=== PATIENT | male | born 1990 | race Asian ===

== ENCOUNTER 2019-07-27 12:51 | Emergency (ER) | payer SELFPAY ==
--- NOTE | 2019-07-27 13:28 | ED ---
Throat Pain/Nasal Congestion - HPI Summary HPI Summary: Patient is a 29 y/o M presenting to [facility] with complaints of right sided epistaxis since two days ago. Patient was evaluated by [facility] yesterday , 07/26/19. He states that the bleeding had stopped by the time he was evaluated. Patient was given nasal spray and discharged. However, since last night, Sx resumed. [facility] advised patient to come to [facility] for further evaluation. Patient had some blood drip down his throat with initial episode, but not with current episode. He denies injury to nose. No Hx of bleeding disorders reported, but the patient does endorse Hx of HTN. He is not on blood thinners. No allergies to medications noted. He has not used his nasal spray yet. - History of Current Complaint Chief Complaint: EDEpistaxis Time Seen by Provider: 07/27/19 13:18 Hx Obtained From: Patient Onset/Duration: Lasting Days, Still Present Severity: Mild Associated Signs And Symptoms: Positive: Nasal Discharge - blood Cough: None - Allergies/Home Medications Allergies/Adverse Reactions: Allergies Allergy/AdvReac Type Severity Reaction Status Date / Time No Known Allergies Allergy Verified 07/27/19 14:13 PMH/Surg Hx/FS Hx/Imm Hx Cardiovascular History: Reports: Hx Hypertension Sensory History: Denies: Hx Legally Blind Opthamlomology History: Denies: Hx Legally Blind Infectious Disease History: Unable to Obtain/Confirm Infectious Disease History: Denies: Traveled Outside the [place] in Last 30 Days - Family History Known Family History: Positive: Hypertension Review of Systems Negative: Fever - on vitals, temp is 98.2 F ENT: Other - NEGATIVE - TRAUMA TO NOSE; POSITIVE - BLOOD DRIPPING DOWN THROAT Positive: Epistaxis All Other Systems Reviewed And Are Negative: Yes Physical Exam - Summary Physical Exam Summary: Constitutional: Well-developed, Well-nourished, Alert. (-) Distressed Skin: Warm, Dry HENT: Normocephalic; Atraumatic; Dry blood noted in right nare, no active bleed , cannot visualize bleeding source Eyes: Conjunctiva normal Neck: Musculoskeletal ROM normal neck. (-) JVD, (-) Stridor, (-) Tracheal deviation Cardio: Rhythm regular, rate normal, Heart sounds normal; Intact distal pulses; The pedal pulses are 2+ and symmetric. Radial pulses are 2+ and symmetric. (-) Murmur Pulmonary/Chest wall: Effort normal. (-) Respiratory distress, (-) Wheezes, (-) Rales Abd: Soft, (-) tenderness, (-) Distension, (-) Guarding, (-) Rebound Musculoskeletal: (-) Edema Lymph: (-) Cervical adenopathy Neuro: Alert, Oriented x3 Psych: Mood and affect Normal Triage Information Reviewed: Yes Vital Signs On Initial Exam: Initial Vitals Temp Pulse Resp BP Pulse Ox 98.2 F 112 20 147/113 98 07/27/19 12:53 07/27/19 12:53 07/27/19 12:53 07/27/19 12:53 07/27/19 12:53 Vital Signs Reviewed: Yes Procedures - Sedation Patient Received Moderate/Deep Sedation with Procedure: No Diagnostics - Vital Signs Vital Signs Temp Pulse Resp BP Pulse Ox 07/27/19 12:53 98.2 F 112 20 147/113 98 - Laboratory Lab Statement: Any lab studies that have been ordered have been reviewed, and results considered in the medical decision making process. Re-Evaluation - Re-Evaluation Second Eval Re-Evaluation Time: 14:32 Comment: Cocaine soaked gauze was removed, no brisk bleeding, no clear bleed source, surgicel inserted, will reasses. First Eval Re-Evaluation Time: 13:59 Comment: Liquid cocaine soaked gauze administered to right nare. Will reassess. Third Eval Re-Evaluation Time: 15:28 Comment: Surgicel was removed. There is no fresh blood noted and no active bleeding. Patient is comfortable with discharge. Fourth Eval Re-Evaluation Time: 16:00 - new surgicel packed in right nare per request of patient. no active bleed, however pt rather anxious and requesting packing placed. EENT Course/Dx - Course Course Of Treatment: Patient is a 29 y/o M presenting to [facility] with complaints of right sided epistaxis since two days ago. No Hx of bleeding disorder, patient is not on blood thinners. He does endorse Hx of HTN. Dry blood noted in right nare, no active bleed, cannot visualize bleeding source. Liquid-cocaine soaked gauze was applied to right nare. Upon removal of gauze, no bleeding source visualized, no brisk bleeding. Surgigel was inserted. Surgicel was later removed. There is no fresh blood noted and no active bleeding. Patient is comfortable with discharge. He will follow up with ENT doctor in 2-3 days. - Diagnoses Provider Diagnoses: Epistaxis Discharge ED - Sign-Out/Discharge Documenting (check all that apply): Patient Departure - discharge - Discharge Plan Condition: Stable Disposition: HOME Patient Education Materials: Nosebleed (ED) Referrals: [facility] - Marvin SELLERS [Primary Care Provider] - 3 Days Pete Hernandez MD [Medical Doctor] - 3 Days Additional Instructions: PLEASE RETURN TO ED FOR ANY NEW OR WORSENING SYMPTOMS. FOLLOW UP WITH ENT DOCTOR WITHIN 2-3 DAYS. - Billing Disposition and Condition Condition: STABLE Disposition: Home - Attestation Statements Document Initiated by Martha: Yes Documenting Scribe: RONIT JACKSON Provider For Whom Martha is Documenting (Include Credential): SOFIA MCKEON DO Scribe Attestation: IRONIT scribed for SOFIA MCKEON DO on 07/27/19 at 1627. Scribe Documentation Reviewed: Yes Provider Attestation: The documentation as recorded by the RONIT bains accurately reflects the service I personally performed and the decisions made by , SOFIA MCKEON DO Status of Scribyolie Document: Viewed
[2019-07-27] MEDS ORDERED: Cocaine 4% TOPICAL* 4 ML TOP.SOLN RIGHT NARE ONE (13:33)
[2019-07-27] MEDS ORDERED: Silver Nitrate/Potassium Nitr* 1 EA STICK TOPICAL ONE (13:34)
[2019-07-27 15:57] VITALS: BP 135/79
== END 2019-07-27 15:55 | disposition home or self-care (01) ==
LOC: ED 12:51
DX: R04.0 Epistaxis (principal); I10 Essential (primary) hypertension
CPT/HCPCS: 99282; A9270-GY